=== PATIENT | male | born 2000 | race Caucasian/White ===

== ENCOUNTER 2020-06-08 17:22 | Emergency (ER) | payer SELFPAY ==
--- NOTE | 2020-06-08 17:45 | NUR ---
Patient eloped from facility. ER physician notified. NAD noted
== END 2020-06-08 17:50 | disposition left against medical advice (07) ==
LOC: ER 17:25
DX: Z75.3 Unavailability and inaccessibility of health-care facilities (principal)
CPT/HCPCS: J7030